=== PATIENT | male | born 1990 | race Two or more races ===

== ENCOUNTER 2021-11-08 10:46 | Emergency (ER) | payer OTHER, SELFPAY ==
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
[2021-11-08 11:00] VITALS: BP 133/83; PULSE 82; RESP 16; O2SAT 98; BMI 25.7
[2021-11-08] MEDS: Ketorolac Tromethamine 15 MG/ML VIAL IM (11:10)
[2021-11-08] MEDS: Cyclobenzaprine HCl 5 MG TABLET PO (11:10)
== END 2021-11-08 11:34 | disposition home or self-care (01) ==
PROVIDERS: Emergency Provider Emergency Medicine Emergency Medical Services
DX: S13.4XXA Sprain of ligaments of cervical spine, initial encounter (principal); V43.62XA Car passenger injured in collision with other type car in traffic accident, initial encounter; Y93.9 Activity, unspecified; Y92.410 Unspecified street and highway as the place of occurrence of the external cause; Y99.9 Unspecified external cause status
CPT/HCPCS: 96372; 99283; 99284; J1885